=== PATIENT | female | born 1950 | race Caucasian/White ===

== ENCOUNTER 2017-09-07 09:46 | Emergency (ER) | payer MEDICARE, MEDICAID ==
--- NOTE | 2017-09-07 11:45 | RAD ---
RADIOGRAPH CHEST 2 VIEWS: HISTORY: 67 year old female with cough. FINDINGS: The thoracic aorta is tortuous and ectatic. There is no evidence of air space density, pneumothorax, or pulmonary edema. There is no cardiomegaly or pleural effusion. IMPRESSION: 1) No acute cardiopulmonary findings. 2) Ectasia of thoracic aorta. froy [] POS: TITUS
== END 2017-09-07 11:18 | disposition home or self-care (01) ==
LOC: MADERS 09:46
DX: J10.1 Influenza due to other identified influenza virus with other respiratory manifestations (principal); E03.9 Hypothyroidism, unspecified; K21.9 Gastro-esophageal reflux disease without esophagitis; I10 Essential (primary) hypertension; Z79.899 Other long term (current) drug therapy
CPT/HCPCS: 71020; 87804

== ENCOUNTER 2018-09-14 15:44 | Outpatient (CLI) | payer MEDICARE, MEDICAID ==
--- NOTE | 2018-09-14 17:07 | RAD ---
CERVICAL SPINE SIX VIEWS: INDICATIONS: Neck pain. Radiation to right upper extremity. FINDINGS: There are moderate degenerative changes of the lower cervical spine. There is a slight anterolisthes is at C4-C5, measured at approximately 3 mm. Loss of disk space with degenerative spurring is promin ent at C5-C6 and C6-C7. Minimal posterior listhesis at C5-C6 with prominent posterior spondylosis at C5-C6 and C6-C7. Anterior osteophytes at these levels are also noted with slight anterior wedging a t both these vertebrae. Foraminal encroachment due to hypertrophic change is seen at C5-C6 and C6-C7 bilaterally. IMPRESSION: Moderate degenerative changes of the cervical spine, seen from C4 through C7, as described. POS: TITUS
== END 2018-09-14 15:45 | disposition home or self-care (01) ==
LOC: MADRAD 15:44
PROVIDERS: ATTEND Physician Assistant
DX: M54.2 Cervicalgia (principal); M47.812 Spondylosis without myelopathy or radiculopathy, cervical region
CPT/HCPCS: 72052

== ENCOUNTER 2019-04-27 12:55 | Outpatient (CLI) | payer MEDICARE, MEDICAID ==
--- NOTE | 2019-04-27 13:23 | RAD ---
PA AND LATERAL VIEWS CHEST: HISTORY: Preoperative evaluation for total knee replacement. FINDINGS: Comparison is made with the exam of 09/07/2017. The heart size is borderline. The aorta is tortuous. The lungs are expanded without focal areas of consolidation, pneumothoraces, morgan pulmonary edema, or pleural effusions. No acute osseous abnorma lities are seen. IMPRESSION: No radiographic evidence of acute cardiopulmonary process. POS: OFF
== END 2019-04-27 12:56 | disposition home or self-care (01) ==
LOC: MADRAD 12:55
PROVIDERS: ATTEND Physician Assistant
DX: Z01.818 Encounter for other preprocedural examination (principal)
CPT/HCPCS: 71046

== ENCOUNTER 2020-02-07 21:33 | Emergency (ER) | payer MEDICARE, MEDICAID ==
[2020-02-07] MEDS ORDERED: Acetaminophen 500 MG TAB ONE (22:02)
[2020-02-07] MEDS ORDERED: Dexamethasone 4 MG TAB ONE (22:02)
== END 2020-02-07 22:05 | disposition home or self-care (01) ==
LOC: MADERS 21:33
DX: S46.001A Unspecified injury of muscle(s) and tendon(s) of the rotator cuff of right shoulder, initial encounter (principal); E03.9 Hypothyroidism, unspecified; K21.9 Gastro-esophageal reflux disease without esophagitis; W01.0XXA Fall on same level from slipping, tripping and stumbling without subsequent striking against object, initial encounter
CPT/HCPCS: 99283; J8540

== ENCOUNTER 2020-02-10 15:56 | Emergency (ER) | payer MEDICARE, OTHER ==
[2020-02-10 16:41] LABS: Bilirubin Small (Negative); Blood, Urine Negative (Negative); Clarity Cloudy (Clear); Glucose, Urine (Dipstick) Negative (Negative); Leukocyte Negative (Negative); Nitrite Negative (Negative); Protein, Urine (Dipstick) > or equal to 300 mg/dL (Neg-Trace); Urobilinogen 0.2 mg/dL (Less than 2)
[2020-02-10 16:48] LABS: INR-International Normal Ratio 1.1; Prothrombin Time 14.2 sec (12.0-14.7)
[2020-02-10 16:56] LABS: Amphetamine Detected (NotDetected); Barbiturates Screen Not Detected (NotDetected); Benzodiazepine Screen Not Detected (NotDetected); Cocaine Metabolite Screen Not Detected (NotDetected); Medtox Control Line Valid? VALID (VALID); Methadone Not Detected (NotDetected); Methamphetamine Not Detected (NotDetected); Opiate Screen Detected (NotDetected); Oxycodone Screen Not Detected (NotDetected); Phencyclidine (PCP) Detected (NotDetected); THC/Cannabinoid Screen Not Detected (NotDetected); Tricyclic Screen Not Detected (NotDetected)
[2020-02-10 17:12] LABS: Bacteria/HPF Rare-Few HPF (None Seen); RBC/HPF None Seen HPF (0-3); Squamous Epithelial 0-3 HPF (0-3); WBC/HPF None Seen HPF (0-3)
[2020-02-10 17:19] LABS: Band 8 % (5-11); Hemoglobin 14.3 g/dL (12.0-16.0); Lymphocytes 26 % (21-51); MDiff Complete? YES; Mean Corpuscular HGB CONC 31.7 g/dL (32.0-36.0); Mean Corpuscular Hemoglobin 30.6 pg (27.0-31.0); Mean Corpuscular Volume 96.7 fL (78.0-98.0); Monocytes 6 % (0-10); Neutrophil 60 % (42-75); Platelet Count 251 thou/uL (130-400); Platelet Morphology Comment Appears Adequate; RBC Distribution Width 13.2 % (11.5-14.5); RBC Morphology Normal; Red Blood Cell (RBC) Count 4.67 mill/uL (4.20-5.40); White Blood Cell (WBC) Count 2.8 thou/uL (4.8-10.8)
[2020-02-10 17:21] LABS: Acetaminophen Less than 6.0 mcg/mL (10.0-30.0); Alcohol Less than 10 mg/dL (Less than 10); Salicylate Less than 8.0 mg/dL (15.0-30.0)
[2020-02-10 17:26] LABS: Anion Gap 23 mmol/L (10-20); BUN (Urea Nitrogen) 84 mg/dL (9.8-20.1); Carbon Dioxide 15 mmol/L (23-31); Chloride 101 mmol/L (98-107); Sodium 135 mmol/L (136-145)
[2020-02-10 17:27] LABS: Albumin 2.9 g/dL (3.4-4.8); Bilirubin, Total 0.5 mg/dL (0.2-1.2); Calc. Creatinine Clearance 0 mL/min (70-130); Estimated GFR-MDRD 11; Glucose 103 mg/dL (80-115)
[2020-02-10 17:29] LABS: ALT (SGPT) 79 U/L (8-55); AST (SGOT) 106 U/L (5-34); Alkaline Phosphatase 74 U/L (40-110); Lipase 4 U/L (8-78)
[2020-02-10 17:32] LABS: Globulin 3.1 g/dL (2.4-3.5)
[2020-02-10] MEDS ORDERED: Ondansetron PF 4 MG/2 ML Vial ONE ×2 (17:47→17:51)
[2020-02-10] MEDS ORDERED: Lactated Ringer's 1,000 ML ONE ×2 (17:47→19:21)
[2020-02-10] MEDS ORDERED: Lorazepam 2 MG/ML VIAL ONE ×2 (18:22→18:41)
[2020-02-10] MEDS ORDERED: Ketamine 50 MG/ML (10ML VIAL) ONE (18:23)
[2020-02-10] MEDS ORDERED: Cefepime 2 GM VIAL ONE (19:21)
[2020-02-10] MEDS ORDERED: Sodium Chloride 0.9% 100 ML ONE (19:21)
--- NOTE | 2020-02-10 19:24 | CT ---
CT ABDOMEN AND PELVIS WITHOUT CONTRAST: 02/10/20 HISTORY: Abdominal pain after a narcotic overdose. COMPARISON: None. FINDINGS: Mild scarring in the lung bases. No pericardial effusion. Moderate third spacing of fluid on the right hemiabdomen and hemichest with right sided thoracic abdo marilee and pelvic skin thickening may be positional. Old skin jose manuel along the line[place]ba. There is no nephroureterolithiasis or hydroureteronephrosis. No secondary evidence of recently passed stone. Mild third spacing of fluid in the anterior pararenal space. Gallbladder is distended. Noncon trast evaluation of the liver and spleen are unremarkable. Aortic contour is nonaneurysmal. No acute osseous abnormality. IMPRESSION: 1. No nephroureterolithiasis or hydroureteronephrosis. No secondary evidence of recently passed stone. 2. Mild likely interstitial third spacing of fluid along the right hemichest, abdomen and pelvis superficial and deep soft tissues with skin thickening. 3. Mild gallbladder distention may be sequela of n.p.o. status. No pericholecystic edema. 4. Mildly distended hepatic flexure of colon may be sequela of localized ileus. No evidence for obstruction. POS: HOME
== END 2020-02-10 20:11 | disposition short-term general hospital (02) ==
LOC: MADERS 15:56
DX: A41.9 Sepsis, unspecified organism (principal); N28.9 Disorder of kidney and ureter, unspecified; E78.5 Hyperlipidemia, unspecified; I10 Essential (primary) hypertension; E03.9 Hypothyroidism, unspecified; K21.9 Gastro-esophageal reflux disease without esophagitis; R00.0 Tachycardia, unspecified; R45.1 Restlessness and agitation; R41.82 Altered mental status, unspecified; Z79.01 Long term (current) use of anticoagulants; Z79.899 Other long term (current) drug therapy
CPT/HCPCS: 36415; 51701; 74176; 80053; 80306; 80307; 81003; 81015; 83690; 84443; 85025; 85610; 93005; 96361; 96374; 96375; 96376; J0692; J2060; J2405; J3490; J7120

== ENCOUNTER 2020-03-27 12:43 | Outpatient (CLI) | payer MEDICARE, OTHER ==
[2020-03-27 13:28] LABS: Anion Gap 20 mmol/L (10-20); BUN (Urea Nitrogen) 44 mg/dL (9.8-20.1); Calc. Creatinine Clearance 0 mL/min (70-130); Carbon Dioxide 22 mmol/L (23-31); Chloride 109 mmol/L (98-107); Glucose 97 mg/dL (80-115); Potassium 4.7 mmol/L (3.5-5.1); Sodium 146 mmol/L (136-145)
== END 2020-03-27 12:44 | disposition home or self-care (01) ==
LOC: MADLAB 12:43
PROVIDERS: ATTEND Internal Medicine Nephrology
DX: Z48.815 Encounter for surgical aftercare following surgery on the digestive system (principal); N17.0 Acute kidney failure with tubular necrosis; K94.13 Enterostomy malfunction
CPT/HCPCS: 80048